=== PATIENT | female | born 1995 | race Caucasian/White ===

== ENCOUNTER 2024-05-23 23:44 | Emergency (ER) | payer OTHER, SELFPAY ==
[2024-05-23 23:57] VITALS: BP 134/86
[2024-05-24 01:54] VITALS: BMI 33.6
[2024-05-24 01:55] VITALS: BP 138/94
--- NOTE | 2024-05-24 02:14 | ED.SKININJ ---
HPI-Injury
General
Chief Complaint: Ear Problem
Source: patient
Exam Limitations: none
Time Seen by Provider: 05/24/24 01:47
Nursing documentation reviewed up to this point in time: agreed with
History of Present Illness-Injury
Initial Injury comments:
28 yo female presents with significant pain left ear started 2 days ago, denies fever, n/v. No recent swimming. Left side neck sore with lump under jaw. Denies sore throat.
Past History
Past History
ED Past Medical History: None
ED Past Surgical History: Gynecological (Tubal, Ovarian cyst)
Social History
Tobacco: Smoker
Alcohol: None
Drug: None
Personal: Single
Living: with family (Boyfriend)
Employment: Employed
Family History
Family History: Other (Non-contributory)
Review of Systems
Review of Systems
Allergies reviewed?: Yes
All Other Systems: ROS reviewed and negative except as documented in HPI and ROS
Constitutional: Denies fever or chills
EENT: Reports other (left ear pain, swollen lymph node); Denies sore throat
Respiratory: Denies cough or trouble breathing
Cardiac: Denies chest pain
ABD/GI: Denies abdominal pain, nausea, vomiting or diarrhea
Musculoskeletal: Reports no symptoms
Skin: Reports no symptoms
Neurological: Reports no symptoms
Phy Exam
Physical Exam
Physical Exam:
PHYSICAL EXAMINATION:
General: no apparent distress, not acutely ill
Neuro: alert and oriented.
ENT: Neck supple, enlarged tender submandibular lymph node. Swallowing well, pharynx normal, left ear canal is swollen shut, TM unable to be visualized. Pain with mild outer ear retraction. No trismus. No mastoid tenderness
Psychiatric: Anxious, tearful, well kept. interactive and cooperative
Musculoskeletal: Moves with ease
Skin: Warm, pink.
Course
Orders/Labs/Results
Orders:
Orders
05/24/24 02:05
Ofloxacin [Ocuflox] 1 drop .ROUTE .STK-MED ONE
05/24/24 02:08
Oxycodone/Acetaminophen [Percocet 5/325] 1 tablet PO NOW STA
05/24/24 02:09
Amoxicillin 875 mg/Clav 125 mg [Augmentin 875 mg/125 mg] 1 tablet PO NOW STA
05/24/24 02:30
Dexamethasone [Decadron] 10 mg PO NOW STA
05/24/24 08:00
Ofloxacin [Ocuflox] See Dose Instructions OTIC DAILY
Vital Signs
Initial and Last Documented VS:
Initial Vital Signs
Temp Pulse Resp BP Pulse Ox
97.5 F 75 16 134/86 98
05/23/24 23:57 05/23/24 23:57 05/23/24 23:57 05/23/24 23:57 05/23/24 23:57
Last Documented Vital Signs
Temp Pulse Resp BP Pulse Ox
97.8 F 59 18 138/94 99
05/24/24 01:55 05/24/24 01:55 05/24/24 01:55 05/24/24 01:55 05/24/24 01:55
MDM/Problems Addressed
Differential Diagnosis Includes:
AOM, AOE, mastoiditis
MDM/Problems Addressed:
28 yo female presents with significant pain left ear started 2 days ago, denies fever, n/v. No recent swimming. Left side neck sore with lump under jaw. Denies sore throat.
Afebrile, appears moderately uncomfortable
Since cannot visualize TM, significant tender lymphadenopathy, Augmentin for possible AOM.
Ear canal swollen shut, ear wick inserted and Ofloxacin drops applied to cover pseudomonas
No tendterness, swelling, redness over mastoid
Sent home with the Ofloxacin
Rx for Augmentin sent to her pharmacy.
*Critical Care Note
Total Time (30-74mins, 75-104mins- exclusive of procedures): Not Applicable
ED Attending Note
-
Portions of this chart may have been created with voice recognition software.� Occasional wrong word or��sound alike� substitutions may have occurred due to the inherent limitations of voice recognition software.
Discharge Plan
Departure
Patient Disposition: Home (Routine Discharge)
Date of Disposition: 05/24/24
Time of Disposition: 02:26
Patient with high blood pressure during this ER visit?: No
Condition: Fair
Discharge Problem:
Acute Otitis Externa, Acute infection of left ear
Instructions: Outer Ear Infection (DC), Serous Otitis Media (DC)
Prescriptions:
New
amoxicillin-pot clavulanate 875-125 mg tablet
1 tab PO BID Qty: 14 0RF
No Action
penicillin V potassium 500 MG tablet
500 mg PO BID Qty: 14 0RF
prednisone 20 MG tablet
20 mg PO DAILY Qty: 4 0RF
Referrals:
Bradford Freire MD [Active] - As needed
Alexandre Oconnor, DO [Family Provider] - As needed
Stand Alone Forms: Return to Work
Activity Restrictions/Additional Instructions:
As we discussed, I sent a prescription to your pharmacy for Augmentin antibiotic to start tomorrow as you were given a dose here today
Ibuprofen 600 mg, with food, every 6 hours as needed for pain.
Interventions
Interventions:
*Risk Screen - Suicide Last Done: 05/23/24 23:45
*General Assessment Last Done: 05/23/24 23:57
*Neglect/Abuse Screening Last Done: 05/23/24 23:57
ED- Fall Risk Assessment Last Done: 05/24/24 02:41
*Nursing Disposition Last Done: 05/24/24 02:41
ED-EENT Assessment Last Done: 05/24/24 01:51
ED- Pulmonary Assessment Last Done: 05/24/24 01:51
Discharge Date and Time
Discharge Date/Time: 05/24/24 02:41
Print Language: SERBIAN
[2024-05-24] MEDS: AUGMENTIN 875 MG/125 MG 1 TABLET PO (02:16)
[2024-05-24] MEDS: PERCOCET 5/325 1 TABLET PO (02:16)
[2024-05-24] MEDS: OCUFLOX 5 DROP OTIC (02:16)
[2024-05-24] MEDS: DECADRON 10 MG PO (02:35)
== END 2024-05-24 02:41 | disposition home or self-care (01) ==
LOC: EMR 23:44
PROVIDERS: EMERGENCY PHYSICIAN Student in an Organized Health Care Education/Training Program; FAMILY PHYSICIAN Family Medicine
DX: H60.502 Unspecified acute noninfective otitis externa, left ear (principal); H66.92 Otitis media, unspecified, left ear
CPT/HCPCS: 99282

== ENCOUNTER 2024-06-29 21:55 | Emergency (ER) | payer OTHER, SELFPAY ==
[2024-06-29 21:55] VITALS: BMI 34.2
[2024-06-29 22:05] VITALS: BP 124/85
[2024-06-29 22:23] LABS: % Basophils 0.5 % (0-2); % Eosinophils 1.5 % (0-6); % Immature Granulocytes 0.3 % (0-0.5); % Monocytes 5.7 % (1.7-9.3); Absolute Basophils 0.1 10^3/uL (0-0.2); Absolute Eosinophils 0.2 10^3/uL (0-0.7); Absolute Lymphocytes 4.2 10^3/uL (1.2-3.4); Absolute Monocytes 0.6 10^3/uL (0.1-0.6); Absolute Neutrophils 5.3 10^3/uL (1.4-6.5); Hematocrit 37.4 % (37.0-47.0); Mean Corp Hgb Conc. 34.8 g/dL (33.0-37.0); Mean Corpuscular Hgb 27.7 pg (27.0-31.0); Mean Corpuscular Volume 79.7 fL (81.0-99.0); Mean Platelet Volume 10.5 fL (7.4-10.4); Nucleated Red Blood Cells % 0 %; Platelet Count 250 10^3/uL (130-400); Red Blood Cell Count 4.69 10^6/uL (4.20-5.40); White Blood Cell Count 10.3 10^3/uL (4.8-10.8)
[2024-06-29 22:34] LABS: HCG, Serum Qualitative Screen Negative
[2024-06-29 22:35] LABS: ALT (SGPT) 23 U/L (0-35); AST (SGOT) 23 U/L (14-36); Albumin 4.4 g/dl (3.5-5.0); Alkaline Phosphatase 40 U/L (38-126); Blood Urea Nitrogen 15 mg/dl (7-17); Calcium 9.9 mg/dl (8.4-10.2); Carbon Dioxide 26 mmol/L (22-30); Chloride 104 mmol/L (98-107); Glucose 102 mg/dl (70-99); Potassium 4.2 mmol/L (3.5-5.1); Sodium 140 mmol/L (135-145); Total Bilirubin 0.1 mg/dl (0.2-1.3); eGFR > 60.00
[2024-06-29 22:46] LABS: Troponin I < 0.012 ng/ml
[2024-06-29 23:58] VITALS: BP 135/75
[2024-06-30] VITALS: BP 134/85
[2024-06-30 01:00] VITALS: BP 123/83
--- NOTE | 2024-06-30 01:29 | ED.GENMED ---
History of Present Illness
General
Chief Complaint: Chest Pain
Time Seen by Provider: 06/30/24 01:10
History of Present Illness
History of Present Illness:
1-year-old woman with no past medical history presenting to the emergency department chest pain. Patient is for the past few days she has been having intermittent chest pain that is midsternal. It is pressure. She states it is worse with leaning
forward and movement. She notes that today it was more constant. She has had this chest pain before when she has upper respiratory infection. She does feel as if she has had voice changes some congestion and a cough. No shortness of breath. No
leg swelling hemoptysis travel malignancy or hormone use. No family history of blood clots. No family history of cardiac disease. No travel. No fevers.
Past History
Past History
ED Past Medical History: None
ED Past Surgical History: Gynecological (Tubal, Ovarian cyst)
Social History
Tobacco: Smoker
Alcohol: None
Drug: None
Personal: Single
Living: with family (Boyfriend)
Employment: Employed
Family History
Family History: Other (Non-contributory)
Phy Exam
Physical Exam
Physical Exam:
GENERAL: in no acute distress
HEENT: normocephalic, extraocular movements intact, moist oral mucosa
NECK: normal inspection
RESPIRATORY: no respiratory distress, clear to auscultation bilaterally
CARDIOVASCULAR: regular rate and rhythm
ABDOMEN/: soft, non-distended, non-tender to palpation, no rebound or guarding
EXTREMITIES: non-tender, no edema/swelling
NEUROLOGIC: awake and alert, moves all extremities
SKIN: warm
Scores
Heart Score for Chest Pain Patients
STEMI patient?: Not applicable
Course
Orders/Labs/Results
Orders:
Orders
06/29/24 21:56
Electrocardiogram (*1) Urgent
Reason for Study: Chest Pain
EKG- Treatment ONCE
Test Result ONCE
06/29/24 22:14
Complete Blood Count/With Diff Urgent
Comprehensive Metabolic Panel Urgent
HCG, Serum Qualitative Screen Urgent
Troponin I Urgent
06/30/24 00:38
CR Chest - 2 Views Urgent
Comment:
Reason For Exam: chest pain
Abnormal Lab Results
06/29/24
22:14
MCV 79.7 L fL
(81.0-99.0)
MPV 10.5 H fL
(7.4-10.4)
Absolute Lymphs (auto) 4.2 H 10^3/uL
(1.2-3.4)
Glucose 102 H mg/dl
(70-99)
Total Bilirubin 0.1 L mg/dl
(0.2-1.3)
06/29/24 22:14
06/29/24 22:14
Vital Signs
Initial and Last Documented VS:
Initial Vital Signs
Temp Pulse Resp BP Pulse Ox
98.1 F 82 18 124/85 98
06/29/24 22:05 06/29/24 22:05 06/29/24 22:05 06/29/24 22:05 06/29/24 22:05
Last Documented Vital Signs
Temp Pulse Resp BP Pulse Ox
98.1 F 75 16 134/85 100
06/29/24 22:05 06/30/24 00:00 06/30/24 00:00 06/30/24 00:00 06/30/24 00:11
MDM/Problems Addressed
Differential Diagnosis Includes:
Patient is a 28-year-old woman presenting to the emergency department with chest pain that has been ongoing for the past few days. Vitals unremarkable on exam is reassuring. Given the consolation to the symptoms likely viral illness. Could be
pneumonia though less likely. History and exam not consistent with ACS. She is PERC negative. Blood work obtained prior to elevation is unremarkable chest x-ray per my interpretation with no focal opacity. Will discharge at this time. Strict
return precautions given.
*Critical Care Note
Total Time (30-74mins, 75-104mins- exclusive of procedures): Not Applicable
ED Attending Note
-
Portions of this chart may have been created with voice recognition software.� Occasional wrong word or��sound alike� substitutions may have occurred due to the inherent limitations of voice recognition software.
Discharge Plan
Departure
Patient Disposition: Home (Routine Discharge)
Date of Disposition: 06/30/24
Time of Disposition: 01:28
Patient with high blood pressure during this ER visit?: No
Discharge Problem:
Chest pain
Instructions: Chest Pain PCP Follow Up
Prescriptions:
No Action
penicillin V potassium 500 MG tablet
500 mg PO BID Qty: 14 0RF
prednisone 20 MG tablet
20 mg PO DAILY Qty: 4 0RF
amoxicillin-pot clavulanate 875-125 mg tablet
1 tab PO BID Qty: 14 0RF
Referrals:
Alexandre Oconnor, DO [Family Provider] -
Interventions
Interventions:
*General Assessment Last Done: 06/29/24 22:05
*ED COVID-19 Vaccine History Last Done: 06/30/24 00:11
ED- Cardiac Assessment Last Done: 06/30/24 00:11
Discharge Date and Time
Print Language: [id number]
[2024-06-30 01:35] VITALS: BP 114/60
== END 2024-06-30 01:44 | disposition home or self-care (01) ==
LOC: EMR 21:55
PROVIDERS: Student in an Organized Health Care Education/Training Program; EMERGENCY PHYSICIAN Student in an Organized Health Care Education/Training Program; FAMILY PHYSICIAN Family Medicine
DX: R07.89 Other chest pain (principal); F17.200 Nicotine dependence, unspecified, uncomplicated
CPT/HCPCS: 99285; 71046; 80053; 84484; 84703; 85025; 93005